=== PATIENT | male | born 1940 | race African-American/Black ===

== ENCOUNTER 2020-01-07 12:27 | Inpatient (IN) | payer MEDICARE, BC ==
[~2020-01-07] VITALS: Ht 177.8 cm; Wt 97.1 kg
[2020-01-07 13:41] LABS: BASOPHILS % 0.9 % (0.0-2.0); EOSINOPHILS % 1.7 % (0.0-5.0); HEMATOCRIT. 38.2 % (42.0-52.0); HEMOGLOBIN. 12.7 g/dL (14.0-18.0); LYMPHOCYTES % 23.2 % (20.0-50.0); MEAN CORPUSCULAR VOLUME 81.2 fL (80.0-94.0); MONOCYTES % 7.7 % (2.0-8.0); NEUTROPHILS % 66.5 % (40.0-76.0); PLATELET 173 x1000/uL (130-400); RED CELL DISTRIBUTION WIDTH 16.4 % (11.6-14.6)
[2020-01-07 13:49] LABS: CHLORIDE 110 mEq/L (98-107); INR 1.1; PROTHROMBIN TIME 11.8 sec (9.6-11.0)
[2020-01-07] MEDS ORDERED: SODIUM CHLORIDE 0.9% 1,000 ML IV ONE (14:18)
[2020-01-07] MEDS ORDERED: VANCOMYCIN 1 G PREMIX 200 ML IV ONE (14:30)
[2020-01-07] MEDS ORDERED: PIPERACILLIN/TAZ 3.375G PREMIX 50 ML IV ONE (14:30)
[2020-01-07] MEDS ORDERED: POTASSIUM CHLORIDE 20MEQ TABLET SR PO ONE (14:30)
[2020-01-07] MEDS ORDERED: KCL 20MEQ/100ML PREMIX 100 ML IV ONE (14:30)
[2020-01-07 17:02] LABS: CLARITY URINE CLOUDY (CLEAR); COLOR URINE YELLOW (YELLOW); KETONES URINE NEGATIVE (NEGATIVE); LEUKOCYTE ESTERASE URINE 3+ (NEGATIVE); NITRITE URINE POSITIVE (NEGATIVE); OCCULT BLOOD URINE 2+ (NEGATIVE); PROTEIN URINE 1+ (NEGATIVE); SPECIFIC GRAVITY URINE 1.012 (1.005-1.030)
[2020-01-07] MEDS ORDERED: DIPHENHYDRAMINE 50MG/ML VIAL IV PRN (19:45)
[2020-01-07] MEDS ORDERED: POTASSIUM CHLORIDE 20MEQ/PACKET PO NR (19:45)
[2020-01-07] MEDS ORDERED: ACETAMINOPHEN 325MG TABLET PO PRN (19:45)
[2020-01-07] MEDS ORDERED: ONDANSETRON HCL 4MG/2ML INJ IV PRN (19:45)
[2020-01-07] MEDS ORDERED: ENOXAPARIN 40MG/0.4ML SYR SUBCUT SCH (19:45)
[2020-01-07] MEDS: ENOXAPARIN 30MG/0.3ML SYR SUBCUT SCH ×2 (22:11→22:55)
[2020-01-07] MEDS: CEFTRIAXONE 1 G PREMIX 50 ML IV SCH ×2 (22:11→22:18)
[2020-01-07] MEDS: ACETAMINOPHEN 325MG TABLET PO PRN (22:12)
[2020-01-08] VITALS: BP 164/81
[2020-01-08] MEDS: SODIUM CHL 0.45% + KCL 20MEQ/L 1,000 ML IV SCH ×3 (00:27→11:03)
[2020-01-08] MEDS: CLONIDINE 0.1MG TABLET PO PRN (01:33)
[2020-01-08 04:00] VITALS: BP 121/66
[2020-01-08 07:48] LABS: BASOPHILS % 0.8 % (0.0-2.0); EOSINOPHILS % 1.3 % (0.0-5.0); HEMATOCRIT. 38.5 % (42.0-52.0); HEMOGLOBIN. 12.6 g/dL (14.0-18.0); MEAN CORPUSCULAR VOLUME 82.4 fL (80.0-94.0); MEAN PLATELET VOLUME 10.3 fl (7.4-10.4); MONOCYTES % 7.2 % (2.0-8.0); NEUTROPHILS % 67.7 % (40.0-76.0); PLATELET 165 x1000/uL (130-400); RED BLOOD CELL COUNT 4.67 mill/uL (4.7-6.1); RED CELL DISTRIBUTION WIDTH 16.1 % (11.6-14.6)
[2020-01-08 08:00] VITALS: BP 166/83
[2020-01-08 08:07] LABS: CHLORIDE 112 mEq/L (98-107)
[2020-01-08 08:22] LABS: PHOSPHORUS 2.3 mg/dL (2.5-4.9)
[2020-01-08] MEDS: AMLODIPINE 5MG TABLET PO SCH (09:31)
[2020-01-08 12:00] VITALS: BP 143/84
[2020-01-08] MEDS ORDERED: DEXT 5% WATER + KCL 40MEQ/L 1,000 ML IV SCH (13:30)
[2020-01-08] MEDS ORDERED: POTASSIUM PHOS,M-BASIC-D-BASIC 15 MMOL in DEXT 5% WATER 245 ML IV NR (14:00)
[2020-01-08] MEDS: POTASSIUM CHLORIDE INJ 40 MEQ in DEXTROSE 5% WATER 1,000 ML IV SCH (15:49)
[2020-01-08 16:00] VITALS: BP 113/63
[2020-01-08 20:49] VITALS: BP 136/75
[2020-01-08] MEDS: FAMOTIDINE 20MG TABLET PO SCH (21:39)
[2020-01-08] MEDS: ENOXAPARIN 30MG/0.3ML SYR SUBCUT SCH (21:39)
[2020-01-09] VITALS (7 sets, daily range): BP systolic 98–140; BP diastolic 56–83
[2020-01-09] MEDS: POTASSIUM CHLORIDE INJ 40 MEQ in DEXTROSE 5% WATER 1,000 ML IV SCH ×3 (01:06→17:43)
[2020-01-09 07:59] LABS: CHLORIDE 109 mEq/L (98-107)
[2020-01-09 08:06] LABS: PHOSPHORUS 2.7 mg/dL (2.5-4.9)
[2020-01-09] MEDS: AMLODIPINE 5MG TABLET PO SCH (08:22)
[2020-01-09] MEDS: ENOXAPARIN 30MG/0.3ML SYR SUBCUT SCH ×2 (08:22→20:26)
[2020-01-09] MEDS ORDERED: POTASSIUM CHLORIDE 20MEQ TABLET SR PO NR (11:30)
[2020-01-09] MEDS: CEFTRIAXONE 1,000 MG in DEXTROSE 5% WATER 50 ML IV SCH (14:14)
[2020-01-09] MEDS: FAMOTIDINE 20MG TABLET PO SCH (20:26)
[2020-01-09 20:51] LABS: CREATINE KINASE 289 IU/L (39-308)
[2020-01-09 21:09] LABS: FOLIC ACID (FOLATE) SERUM 4.9 ng/mL (>5.38)
[2020-01-10 00:50] LABS: T4 FREE 1.56 ng/dL (0.76-1.46)
[2020-01-10 04:12] VITALS: BP 116/65
[2020-01-10] MEDS: POTASSIUM CHLORIDE INJ 40 MEQ in DEXTROSE 5% WATER 1,000 ML IV SCH ×2 (05:48→17:53)
[2020-01-10 07:15] LABS: HEMATOCRIT. 37.5 % (42.0-52.0); HEMOGLOBIN. 12.7 g/dL (14.0-18.0); MEAN CORPUSCULAR HEMOGLOBIN 27.9 pg (28.0-32.0); MEAN CORPUSCULAR VOLUME 82.6 fL (80.0-94.0); MEAN PLATELET VOLUME 10.2 fl (7.4-10.4); PLATELET 141 x1000/uL (130-400); RED BLOOD CELL COUNT 4.54 mill/uL (4.7-6.1); RED CELL DISTRIBUTION WIDTH 16.7 % (11.6-14.6)
[2020-01-10 08:00] VITALS: BP 133/76
[2020-01-10 08:14] LABS: CHLORIDE 110 mEq/L (98-107)
[2020-01-10 08:20] LABS: PHOSPHORUS 2.5 mg/dL (2.5-4.9)
[2020-01-10] MEDS: AMLODIPINE 5MG TABLET PO SCH (08:30)
[2020-01-10] MEDS: ENOXAPARIN 30MG/0.3ML SYR SUBCUT SCH ×2 (08:31→21:16)
[2020-01-10 12:00] VITALS: BP_SYST 127; BP_SYST 133; BP_DIAS 72; BP_DIAS 75; BP_DIAS 76
[2020-01-10 13:16] LABS: PLATELET ESTIMATE NORMAL
[2020-01-10] MEDS: CEFTRIAXONE 1,000 MG in DEXTROSE 5% WATER 50 ML IV SCH (14:13)
[2020-01-10] MEDS: FOLIC ACID 1MG TABLET PO SCH (15:26)
[2020-01-10] MEDS: LACTULOSE 20G/30ML UDC PO SCH ×2 (15:26→21:16)
[2020-01-10 16:00] VITALS: BP 133/72
[2020-01-10 20:00] VITALS: BP 114/60
[2020-01-10] MEDS: FAMOTIDINE 20MG TABLET PO SCH (21:16)
[2020-01-11] VITALS: BP 153/88
[2020-01-11] MEDS: POTASSIUM CHLORIDE INJ 40 MEQ in DEXTROSE 5% WATER 1,000 ML IV SCH ×2 (02:10→16:03)
[2020-01-11 04:00] VITALS: BP 172/80
[2020-01-11] MEDS: CLONIDINE 0.1MG TABLET PO PRN (04:32)
[2020-01-11] MEDS: LACTULOSE 20G/30ML UDC PO SCH ×3 (06:16→22:03)
[2020-01-11 07:58] VITALS: BP 143/56
[2020-01-11] MEDS: FOLIC ACID 1MG TABLET PO SCH (08:56)
[2020-01-11] MEDS: AMLODIPINE 5MG TABLET PO SCH (08:56)
[2020-01-11] MEDS: ENOXAPARIN 30MG/0.3ML SYR SUBCUT SCH ×2 (08:57→21:56)
[2020-01-11 12:08] VITALS: BP 107/50
[2020-01-11] MEDS: CEFTRIAXONE 1,000 MG in DEXTROSE 5% WATER 50 ML IV SCH (15:28)
[2020-01-11 16:00] VITALS: BP 116/56
[2020-01-11] MEDS: LIDOCAINE 5% PATCH TOP SCH (16:03)
[2020-01-11 20:00] VITALS: BP 130/72
[2020-01-11] MEDS: FAMOTIDINE 20MG TABLET PO SCH (21:56)
[2020-01-12] VITALS (7 sets, daily range): BP systolic 106–154; BP diastolic 54–75
[2020-01-12] MEDS: POTASSIUM CHLORIDE INJ 40 MEQ in DEXTROSE 5% WATER 1,000 ML IV SCH ×2 (01:46→09:48)
[2020-01-12] MEDS: LACTULOSE 20G/30ML UDC PO SCH (06:30)
[2020-01-12] MEDS: FOLIC ACID 1MG TABLET PO SCH (08:35)
[2020-01-12] MEDS: LIDOCAINE 5% PATCH TOP SCH (08:35)
[2020-01-12] MEDS: ENOXAPARIN 30MG/0.3ML SYR SUBCUT SCH ×2 (08:36→21:54)
[2020-01-12] MEDS: AMLODIPINE 5MG TABLET PO SCH (08:36)
[2020-01-12] MEDS ORDERED: POTASSIUM CHLORIDE 20MEQ/PACKET PO NR (13:15)
[2020-01-12] MEDS ORDERED: FUROSEMIDE 40MG/4ML VIAL IVP NR (13:15)
[2020-01-12] MEDS: FAMOTIDINE 20MG TABLET PO SCH (21:53)
[2020-01-13] VITALS: BP 109/51
[2020-01-13 08:00] VITALS: BP 116/65
[2020-01-13] MEDS: LIDOCAINE 5% PATCH TOP SCH (09:00)
[2020-01-13] MEDS: AMLODIPINE 5MG TABLET PO SCH (09:28)
[2020-01-13] MEDS: ENOXAPARIN 30MG/0.3ML SYR SUBCUT SCH ×2 (09:28→21:50)
[2020-01-13] MEDS: FOLIC ACID 1MG TABLET PO SCH (09:28)
[2020-01-13 12:00] VITALS: BP 114/62
[2020-01-13 16:00] VITALS: BP 116/51
[2020-01-13 20:00] VITALS: BP 127/80
[2020-01-13] MEDS: ACETAMINOPHEN 325MG TABLET PO PRN (21:49)
[2020-01-13] MEDS: FAMOTIDINE 20MG TABLET PO SCH (21:49)
[2020-01-14] VITALS: BP 117/69
[2020-01-14 04:00] VITALS: BP 129/71
[2020-01-14 08:00] VITALS: BP 142/67
[2020-01-14] MEDS: FOLIC ACID 1MG TABLET PO SCH (08:36)
[2020-01-14] MEDS: AMLODIPINE 5MG TABLET PO SCH (08:36)
[2020-01-14] MEDS: ENOXAPARIN 30MG/0.3ML SYR SUBCUT SCH ×2 (08:36→21:20)
[2020-01-14] MEDS: LIDOCAINE 5% PATCH TOP SCH (08:38)
[2020-01-14 12:00] VITALS: BP 137/66
[2020-01-14 16:00] VITALS: BP 106/46
[2020-01-14 20:00] VITALS: BP 115/82
[2020-01-14] MEDS: FAMOTIDINE 20MG TABLET PO SCH (21:19)
[2020-01-15] VITALS: BP 118/75
[2020-01-15 04:00] VITALS: BP 138/85
[2020-01-15] MEDS: ENOXAPARIN 30MG/0.3ML SYR SUBCUT SCH ×2 (09:26→20:57)
[2020-01-15] MEDS: FOLIC ACID 1MG TABLET PO SCH (09:26)
[2020-01-15] MEDS: AMLODIPINE 5MG TABLET PO SCH (09:26)
[2020-01-15] MEDS: LIDOCAINE 5% PATCH TOP SCH (09:59)
[2020-01-15 12:00] VITALS: BP 118/61
[2020-01-15 16:00] VITALS: BP 123/79
[2020-01-15] MEDS: FAMOTIDINE 20MG TABLET PO SCH (20:56)
[2020-01-15] MEDS: ACETAMINOPHEN 325MG TABLET PO PRN (20:59)
[2020-01-16] VITALS: BP 123/60
[2020-01-16 04:00] VITALS: BP 122/80
[2020-01-16 08:00] VITALS: BP 127/62
[2020-01-16] MEDS: FOLIC ACID 1MG TABLET PO SCH (09:07)
[2020-01-16] MEDS: AMLODIPINE 5MG TABLET PO SCH (09:07)
[2020-01-16] MEDS: LIDOCAINE 5% PATCH TOP SCH (09:08)
[2020-01-16] MEDS: ENOXAPARIN 30MG/0.3ML SYR SUBCUT SCH ×2 (09:08→21:59)
[2020-01-16 11:59] VITALS: BP 130/64
[2020-01-16] MEDS: ACETAMINOPHEN 325MG TABLET PO PRN (15:31)
[2020-01-16 15:59] VITALS: BP 124/60
[2020-01-16 17:10] LABS: 25-HYDROXY VITAMIN D3 16 ng/mL (.)
[2020-01-16 20:00] VITALS: BP 143/59
[2020-01-16] MEDS: FAMOTIDINE 20MG TABLET PO SCH (22:00)
[2020-01-17] VITALS: BP 134/74
[2020-01-17 04:00] VITALS: BP 126/78
[2020-01-17 08:00] VITALS: BP 163/67
[2020-01-17] MEDS: FOLIC ACID 1MG TABLET PO SCH (08:54)
[2020-01-17] MEDS: ENOXAPARIN 30MG/0.3ML SYR SUBCUT SCH ×2 (08:54→20:49)
[2020-01-17] MEDS: AMLODIPINE 5MG TABLET PO SCH (08:54)
[2020-01-17] MEDS: LIDOCAINE 5% PATCH TOP SCH (08:56)
[2020-01-17 12:00] VITALS: BP 127/82
[2020-01-17] MEDS: ERGOCALCIFEROL 50000UNITS CAPSULE PO SCH (14:33)
[2020-01-17 16:00] VITALS: BP_SYST 151; BP_SYST 159; BP_DIAS 69; BP_DIAS 71
[2020-01-17 20:00] VITALS: BP 133/64
[2020-01-17] MEDS: FAMOTIDINE 20MG TABLET PO SCH (20:49)
[2020-01-18] VITALS: BP 130/62
[2020-01-18 04:00] VITALS: BP 144/73
[2020-01-18 06:49] LABS: BASOPHILS % 0.7 % (0.0-2.0); EOSINOPHILS % 2.7 % (0.0-5.0); LYMPHOCYTES % 19.5 % (20.0-50.0); MEAN CORPUSCULAR HEMOGLOBIN 27.5 pg (28.0-32.0); MEAN CORPUSCULAR VOLUME 82.2 fL (80.0-94.0); MEAN PLATELET VOLUME 9.4 fl (7.4-10.4); MONOCYTES % 11.8 % (2.0-8.0); NEUTROPHILS % 65.3 % (40.0-76.0); PLATELET 163 x1000/uL (130-400); RED BLOOD CELL COUNT 3.64 mill/uL (4.7-6.1); RED CELL DISTRIBUTION WIDTH 16.5 % (11.6-14.6)
[2020-01-18 07:08] LABS: CHLORIDE 111 mEq/L (98-107)
[2020-01-18 08:00] VITALS: BP 153/54
[2020-01-18] MEDS: AMLODIPINE 5MG TABLET PO SCH (08:55)
[2020-01-18] MEDS: ENOXAPARIN 30MG/0.3ML SYR SUBCUT SCH ×2 (08:55→21:50)
[2020-01-18] MEDS: FOLIC ACID 1MG TABLET PO SCH (08:55)
[2020-01-18] MEDS: LIDOCAINE 5% PATCH TOP SCH (09:22)
[2020-01-18 12:00] VITALS: BP 147/63
[2020-01-18 16:00] VITALS: BP 145/69
[2020-01-18 20:00] VITALS: BP 137/60
[2020-01-18] MEDS: FAMOTIDINE 20MG TABLET PO SCH (21:50)
[2020-01-19] VITALS: BP 141/56
[2020-01-19 04:00] VITALS: BP 152/72
[2020-01-19 08:00] VITALS: BP 97/46
[2020-01-19] MEDS: ENOXAPARIN 30MG/0.3ML SYR SUBCUT SCH ×2 (08:33→21:10)
[2020-01-19] MEDS: LIDOCAINE 5% PATCH TOP SCH (08:33)
[2020-01-19] MEDS: FOLIC ACID 1MG TABLET PO SCH (08:34)
[2020-01-19] MEDS: AMLODIPINE 5MG TABLET PO SCH (08:34)
[2020-01-19] MEDS ORDERED: POTASSIUM CHLORIDE 20MEQ TABLET SR PO SCH (10:30)
[2020-01-19 12:00] VITALS: BP 115/51
[2020-01-19 16:00] VITALS: BP 137/53
[2020-01-19 20:00] VITALS: BP 144/68
[2020-01-19] MEDS: FAMOTIDINE 20MG TABLET PO SCH (21:08)
[2020-01-20] VITALS: BP 150/67
[2020-01-20 04:00] VITALS: BP 124/66
[2020-01-20 08:00] VITALS: BP 119/60
[2020-01-20] MEDS: AMLODIPINE 5MG TABLET PO SCH (09:15)
[2020-01-20] MEDS: FOLIC ACID 1MG TABLET PO SCH (09:15)
[2020-01-20] MEDS: ENOXAPARIN 30MG/0.3ML SYR SUBCUT SCH ×2 (09:16→20:17)
[2020-01-20] MEDS: LIDOCAINE 5% PATCH TOP SCH (09:17)
[2020-01-20 09:24] LABS: CHLORIDE 111 mEq/L (98-107)
[2020-01-20] MEDS: POTASSIUM CHLORIDE 20MEQ TABLET SR PO SCH ×3 (10:50→15:18)
[2020-01-20 12:00] VITALS: BP 115/46
[2020-01-20 16:00] VITALS: BP 157/77
[2020-01-20 20:00] VITALS: BP 145/76
[2020-01-20] MEDS: FAMOTIDINE 20MG TABLET PO SCH (20:17)
[2020-01-21] VITALS: BP 145/73
[2020-01-21 04:00] VITALS: BP 133/65
[2020-01-21 06:29] LABS: CHLORIDE 113 mEq/L (98-107)
[2020-01-21 08:00] VITALS: BP 124/67
[2020-01-21] MEDS: AMLODIPINE 5MG TABLET PO SCH (09:03)
[2020-01-21] MEDS: FOLIC ACID 1MG TABLET PO SCH (09:03)
[2020-01-21] MEDS: LIDOCAINE 5% PATCH TOP SCH (09:05)
[2020-01-21] MEDS: ENOXAPARIN 30MG/0.3ML SYR SUBCUT SCH ×2 (09:05→20:21)
[2020-01-21 12:00] VITALS: BP 152/73
[2020-01-21 16:00] VITALS: BP 138/80
[2020-01-21 20:00] VITALS: BP 151/80
[2020-01-21] MEDS: DICLOFENAC SODIUM 75MG DR (EC) TABLET PO SCH (20:21)
[2020-01-21] MEDS: FAMOTIDINE 20MG TABLET PO SCH (20:22)
[2020-01-22] VITALS: BP 165/78
[2020-01-22] MEDS: CLONIDINE 0.1MG TABLET PO PRN (00:36)
[2020-01-22] MEDS: ACETAMINOPHEN 325MG TABLET PO PRN ×2 (00:40→22:04)
[2020-01-22 04:00] VITALS: BP 102/53
[2020-01-22 08:00] VITALS: BP 121/63
[2020-01-22] MEDS: ENOXAPARIN 30MG/0.3ML SYR SUBCUT SCH ×2 (09:58→22:05)
[2020-01-22] MEDS: DICLOFENAC SODIUM 75MG DR (EC) TABLET PO SCH ×2 (09:59→22:04)
[2020-01-22] MEDS: LIDOCAINE 5% PATCH TOP SCH (09:59)
[2020-01-22] MEDS: AMLODIPINE 5MG TABLET PO SCH (10:00)
[2020-01-22] MEDS: FOLIC ACID 1MG TABLET PO SCH (10:00)
[2020-01-22 12:00] VITALS: BP 120/86
[2020-01-22 16:00] VITALS: BP 123/69
[2020-01-22 20:00] VITALS: BP 137/73
[2020-01-22] MEDS: FAMOTIDINE 20MG TABLET PO SCH (22:04)
[2020-01-23] VITALS: BP 130/60
[2020-01-23 04:00] VITALS: BP 150/72
[2020-01-23 08:00] VITALS: BP 132/67
[2020-01-23] MEDS: DICLOFENAC SODIUM 75MG DR (EC) TABLET PO SCH ×2 (08:49→20:45)
[2020-01-23] MEDS: AMLODIPINE 5MG TABLET PO SCH (08:49)
[2020-01-23] MEDS: FOLIC ACID 1MG TABLET PO SCH (08:49)
[2020-01-23] MEDS: LIDOCAINE 5% PATCH TOP SCH (08:50)
[2020-01-23] MEDS: ENOXAPARIN 30MG/0.3ML SYR SUBCUT SCH ×2 (08:50→20:45)
[2020-01-23 12:00] VITALS: BP 140/100
[2020-01-23] MEDS: ACETAMINOPHEN 325MG TABLET PO PRN (15:24)
[2020-01-23 16:00] VITALS: BP 152/73
[2020-01-23 20:00] VITALS: BP 114/61
[2020-01-23] MEDS: FAMOTIDINE 20MG TABLET PO SCH (20:45)
[2020-01-24] VITALS: BP_SYST 130; BP_SYST 139; BP_DIAS 61; BP_DIAS 66
[2020-01-24 04:00] VITALS: BP 140/63
[2020-01-24 08:00] VITALS: BP 149/68
[2020-01-24] MEDS: FOLIC ACID 1MG TABLET PO SCH (08:43)
[2020-01-24] MEDS: AMLODIPINE 5MG TABLET PO SCH (08:43)
[2020-01-24] MEDS: DICLOFENAC SODIUM 75MG DR (EC) TABLET PO SCH ×2 (08:43→21:18)
[2020-01-24] MEDS: ERGOCALCIFEROL 50000UNITS CAPSULE PO SCH (08:43)
[2020-01-24] MEDS: ENOXAPARIN 30MG/0.3ML SYR SUBCUT SCH ×2 (08:44→21:19)
[2020-01-24] MEDS: LIDOCAINE 5% PATCH TOP SCH (08:44)
[2020-01-24 12:00] VITALS: BP 140/62
[2020-01-24 16:00] VITALS: BP 130/64
[2020-01-24 20:00] VITALS: BP 146/67
[2020-01-24] MEDS: FAMOTIDINE 20MG TABLET PO SCH (21:18)
[2020-01-24] MEDS: ACETAMINOPHEN 325MG TABLET PO PRN (21:28)
[2020-01-25] VITALS (7 sets, daily range): BP systolic 113–226; BP diastolic 59–88
[2020-01-25 07:24] LABS: BASOPHILS % 0.6 % (0.0-2.0); EOSINOPHILS % 3.3 % (0.0-5.0); HEMATOCRIT. 28.4 % (42.0-52.0); HEMOGLOBIN. 9.3 g/dL (14.0-18.0); LYMPHOCYTES % 17.6 % (20.0-50.0); MONOCYTES % 10.3 % (2.0-8.0); NEUTROPHILS % 68.2 % (40.0-76.0); PLATELET 178 x1000/uL (130-400); RED BLOOD CELL COUNT 3.46 mill/uL (4.7-6.1); RED CELL DISTRIBUTION WIDTH 17.3 % (11.6-14.6)
[2020-01-25 07:31] LABS: CHLORIDE 112 mEq/L (98-107)
[2020-01-25 07:43] LABS: PHOSPHORUS 3.4 mg/dL (2.5-4.9)
[2020-01-25] MEDS: FOLIC ACID 1MG TABLET PO SCH (08:49)
[2020-01-25] MEDS: DICLOFENAC SODIUM 75MG DR (EC) TABLET PO SCH ×2 (08:49→21:20)
[2020-01-25] MEDS: AMLODIPINE 5MG TABLET PO SCH (08:49)
[2020-01-25] MEDS: ENOXAPARIN 30MG/0.3ML SYR SUBCUT SCH (08:50)
[2020-01-25] MEDS: LIDOCAINE 5% PATCH TOP SCH (08:50)
[2020-01-25] MEDS: ACETAMINOPHEN 325MG TABLET PO PRN (08:57)
[2020-01-25] MEDS ORDERED: POTASSIUM CHLORIDE 20MEQ TABLET SR PO NR (10:15)
[2020-01-25] MEDS: FAMOTIDINE 20MG TABLET PO SCH (21:20)
[2020-01-26] VITALS: BP 142/74
[2020-01-26 04:00] VITALS: BP 145/80
[2020-01-26 08:00] VITALS: BP 139/55
[2020-01-26] MEDS ORDERED: POTASSIUM CHLORIDE 20MEQ TABLET SR PO SCH (09:00)
[2020-01-26] MEDS: FOLIC ACID 1MG TABLET PO SCH (09:58)
[2020-01-26] MEDS: AMLODIPINE 5MG TABLET PO SCH (09:58)
[2020-01-26] MEDS: DICLOFENAC SODIUM 75MG DR (EC) TABLET PO SCH ×2 (09:58→21:30)
[2020-01-26] MEDS: LIDOCAINE 5% PATCH TOP SCH (10:02)
[2020-01-26 10:13] LABS: CHLORIDE 112 mEq/L (98-107)
[2020-01-26 12:00] VITALS: BP 137/55
[2020-01-26] MEDS ORDERED: POTASSIUM CHLORIDE 20MEQ TABLET SR PO NR (12:30)
[2020-01-26 16:00] VITALS: BP 141/55
[2020-01-26 20:00] VITALS: BP 142/70
[2020-01-26] MEDS: FAMOTIDINE 20MG TABLET PO SCH (21:30)
[2020-01-27] VITALS: BP 147/63
[2020-01-27 04:00] VITALS: BP 157/76
[2020-01-27 08:00] VITALS: BP 138/63
[2020-01-27] MEDS: POTASSIUM CHLORIDE 20MEQ TABLET SR PO SCH (09:41)
[2020-01-27] MEDS: AMLODIPINE 5MG TABLET PO SCH (09:41)
[2020-01-27] MEDS: DICLOFENAC SODIUM 75MG DR (EC) TABLET PO SCH ×2 (09:42→20:42)
[2020-01-27] MEDS: FOLIC ACID 1MG TABLET PO SCH (09:42)
[2020-01-27] MEDS: LIDOCAINE 5% PATCH TOP SCH (09:42)
[2020-01-27 12:00] VITALS: BP 156/71
[2020-01-27 16:00] VITALS: BP 139/64
[2020-01-27 20:00] VITALS: BP 153/74
[2020-01-27] MEDS: FAMOTIDINE 20MG TABLET PO SCH (20:42)
[2020-01-28 00:04] VITALS: BP 157/74
[2020-01-28] MEDS: ACETAMINOPHEN 325MG TABLET PO PRN (03:53)
[2020-01-28 04:00] VITALS: BP 155/75
[2020-01-28 08:00] VITALS: BP 154/76
[2020-01-28] MEDS: FOLIC ACID 1MG TABLET PO SCH (08:40)
[2020-01-28] MEDS: POTASSIUM CHLORIDE 20MEQ TABLET SR PO SCH (08:40)
[2020-01-28] MEDS: AMLODIPINE 5MG TABLET PO SCH (08:41)
[2020-01-28] MEDS: DICLOFENAC SODIUM 75MG DR (EC) TABLET PO SCH (08:41)
[2020-01-28] MEDS: LIDOCAINE 5% PATCH TOP SCH (08:43)
[2020-01-28 09:32] LABS: CHLORIDE 113 mEq/L (98-107)
[2020-01-28 12:00] VITALS: BP 140/83
[2020-01-28 16:00] VITALS: BP 143/71
== END 2020-01-28 19:00 | DRG 425 ==
LOC: ER 12:27 → 6WST 16:14 → EDBEDREQ 16:25 → ENRESERV 22:07 → 6EST 01-13 16:40 → 6WST 01-19 14:10 → 6EST 01-19 14:12
PROVIDERS: ADMIT Internal Medicine; ATTEND Internal Medicine
DX: E87.6 Hypokalemia (principal); N39.0 Urinary tract infection, site not specified; G92 Toxic encephalopathy; E87.0 Hyperosmolality and hypernatremia; J18.9 Pneumonia, unspecified organism; M48.02 Spinal stenosis, cervical region; M48.061 Spinal stenosis, lumbar region without neurogenic claudication; I11.0 Hypertensive heart disease with heart failure; G82.50 Quadriplegia, unspecified; E46 Unspecified protein-calorie malnutrition; D64.9 Anemia, unspecified; S43.014A Anterior dislocation of right humerus, initial encounter; E55.9 Vitamin D deficiency, unspecified; R20.0 Anesthesia of skin; W06.XXXA Fall from bed, initial encounter; Z20.828 Contact with and (suspected) exposure to other viral communicable diseases; Z74.01 Bed confinement status; Z75.1 Person awaiting admission to adequate facility elsewhere; Z95.0 Presence of cardiac pacemaker; Y93.89 Activity, other specified; Y92.89 Other specified places as the place of occurrence of the external cause; Y99.8 Other external cause status; Z79.899 Other long term (current) drug therapy; Z68.30 Body mass index [BMI] 30.0-30.9, adult; I50.32 Chronic diastolic (congestive) heart failure; R65.10 Systemic inflammatory response syndrome (SIRS) of non-infectious origin without acute organ dysfunction
CPT/HCPCS: 36415; 71045; 72128; 72131; 73030; 73200; 80048; 80053; 81003; 82088; 82140; 82306; 82533; 82550; 82607; 82746; 82962; 83036; 83605; 83735; 84100; 84145; 84439; 84443; 84481; 84484; 85025; 87635; 92610; 93005; 93970; 96365; 97110; 97162; 97164; 97166; 97530; 99291; J0696; J1650; J1940; J2543; J3370; J3480; J3490; J7030; J7060; J7070

== ENCOUNTER 2020-07-29 18:19 | Inpatient (IN) | payer MEDICARE, BC, MEDICAID ==
[~2020-07-29] VITALS: Ht 167.6 cm; Wt 122.5 kg
[2020-07-29] MEDS ORDERED: VANCOMYCIN 1 G PREMIX 200 ML IV ONE (20:00)
[2020-07-29] MEDS ORDERED: PIPERACILLIN/TAZ 3.375G PREMIX 50 ML IV ONE (20:00)
[2020-07-29] MEDS ORDERED: SODIUM CHLORIDE 0.9% 500 ML IV ONE (20:00)
[2020-07-29 22:05] LABS: BASOPHILS % 0.5 % (0.0-2.0); EOSINOPHILS % 7.1 % (0.0-5.0); HEMATOCRIT. 26.7 % (42.0-52.0); HEMOGLOBIN. 8.8 g/dL (14.0-18.0); MEAN CORPUSCULAR HEMOGLOBIN 27.3 pg (28.0-32.0); MEAN CORPUSCULAR VOLUME 82.6 fL (80.0-94.0); MEAN PLATELET VOLUME 8.4 fl (7.4-10.4); MONOCYTES % 12.2 % (2.0-8.0); NEUTROPHILS % 65.2 % (40.0-76.0); PLATELET 216 x1000/uL (130-400); RED BLOOD CELL COUNT 3.23 mill/uL (4.7-6.1); RED CELL DISTRIBUTION WIDTH 20.1 % (11.6-14.6)
[2020-07-29 22:10] LABS: CHLORIDE 113 mEq/L (98-107)
[2020-07-29 22:12] LABS: INR 1.1; PARTIAL THROMBOPLASTIN TIME 29.3 sec (23.4-31.0); PROTHROMBIN TIME 11.4 sec (9.6-11.0)
[2020-07-29] MEDS ORDERED: FUROSEMIDE 40MG/4ML VIAL IVP ONE (23:00)
[2020-07-30] MEDS ORDERED: CLONIDINE 0.1MG TABLET PO PRN (04:30)
[2020-07-30] MEDS ORDERED: AMLODIPINE 2.5MG TABLET PO SCH (05:00)
[2020-07-30 05:45] VITALS: BP 152/55
[2020-07-30 06:00] VITALS: BP 152/55
[2020-07-30 08:00] VITALS: BP 200/82
[2020-07-30] MEDS: AMLODIPINE 10MG TABLET PO SCH (09:52)
[2020-07-30] MEDS: PIPERACILLIN/TAZOBACTAM 3.375 G in DEXT 5% WATER 100 ML IV SCH ×3 (11:23→21:23)
[2020-07-30] MEDS ORDERED: VANCOMYCIN 1500MG in DEXTROSE 5% WATER 250ML IV SCH (12:00)
[2020-07-30 12:09] VITALS: BP 148/30
[2020-07-30] MEDS ORDERED: PIPERACILLIN/TAZOBACTAM 3.375 G/VIAL IV SCH (14:00)
[2020-07-30 15:54] VITALS: BP 119/35
[2020-07-30 20:00] VITALS: BP 125/41
[2020-07-31] VITALS: BP 112/48
[2020-07-31 04:00] VITALS: BP 136/60
[2020-07-31] MEDS: PIPERACILLIN/TAZOBACTAM 3.375 G in DEXT 5% WATER 100 ML IV SCH ×3 (04:45→16:36)
[2020-07-31] MEDS: VANCOMYCIN 1250MG in DEXTROSE 5% WATER 250ML IV SCH ×2 (05:31→23:31)
[2020-07-31 08:12] VITALS: BP 179/47
[2020-07-31] MEDS: AMLODIPINE 10MG TABLET PO SCH (09:24)
[2020-07-31] MEDS: POTASSIUM CHLORIDE 20MEQ TABLET SR PO SCH (10:59)
[2020-07-31] MEDS: FUROSEMIDE 40MG/4ML VIAL IVP SCH (10:59)
[2020-07-31] MEDS: CLONIDINE 0.2MG TABLET PO PRN (12:10)
[2020-07-31 12:30] LABS: BASOPHILS % 0.9 % (0.0-2.0); EOSINOPHILS % 6.9 % (0.0-5.0); HEMATOCRIT. 26.9 % (42.0-52.0); HEMOGLOBIN. 8.8 g/dL (14.0-18.0); LYMPHOCYTES % 11.3 % (20.0-50.0); MEAN CORPUSCULAR HEMOGLOBIN 27.1 pg (28.0-32.0); MEAN CORPUSCULAR VOLUME 82.8 fL (80.0-94.0); MEAN PLATELET VOLUME 8.6 fl (7.4-10.4); MONOCYTES % 10.1 % (2.0-8.0); NEUTROPHILS % 70.8 % (40.0-76.0); PLATELET 199 x1000/uL (130-400); RED BLOOD CELL COUNT 3.25 mill/uL (4.7-6.1); RED CELL DISTRIBUTION WIDTH 20.1 % (11.6-14.6)
[2020-07-31 12:34] VITALS: BP 174/54
[2020-07-31 12:38] LABS: CHLORIDE 110 mEq/L (98-107)
[2020-07-31 16:41] VITALS: BP 155/32
[2020-07-31 20:00] VITALS: BP 133/49
[2020-08-01] VITALS (7 sets, daily range): BP systolic 117–174; BP diastolic 29–68
[2020-08-01] MEDS: HYDROCODONE/ACETAMINOPHEN 5/325MG TABLET PO PRN ×2 (02:06→10:54)
[2020-08-01 06:44] LABS: BASOPHILS % 0.5 % (0.0-2.0); EOSINOPHILS % 6.3 % (0.0-5.0); HEMATOCRIT. 25.1 % (42.0-52.0); HEMOGLOBIN. 8.2 g/dL (14.0-18.0); LYMPHOCYTES % 16.9 % (20.0-50.0); MEAN CORPUSCULAR HEMOGLOBIN 26.8 pg (28.0-32.0); MEAN PLATELET VOLUME 8.6 fl (7.4-10.4); MONOCYTES % 8.4 % (2.0-8.0); NEUTROPHILS % 67.9 % (40.0-76.0); PLATELET 185 x1000/uL (130-400); RED BLOOD CELL COUNT 3.07 mill/uL (4.7-6.1); RED CELL DISTRIBUTION WIDTH 20.1 % (11.6-14.6)
[2020-08-01 06:49] LABS: CHLORIDE 108 mEq/L (98-107)
[2020-08-01] MEDS: POTASSIUM CHLORIDE 20MEQ TABLET SR PO SCH (08:51)
[2020-08-01] MEDS: FUROSEMIDE 40MG/4ML VIAL IVP SCH (08:51)
[2020-08-01] MEDS: AMLODIPINE 10MG TABLET PO SCH (08:51)
[2020-08-01] MEDS: CLONIDINE 0.2MG TABLET PO PRN (22:29)
[2020-08-02] VITALS: BP 160/31
[2020-08-02 04:00] VITALS: BP 160/37
[2020-08-02] MEDS: HYDROCODONE/ACETAMINOPHEN 5/325MG TABLET PO PRN (07:10)
[2020-08-02 07:14] LABS: CHLORIDE 106 mEq/L (98-107)
[2020-08-02 08:00] VITALS: BP 176/62
[2020-08-02] MEDS: POTASSIUM CHLORIDE 20MEQ TABLET SR PO SCH (09:06)
[2020-08-02] MEDS: FUROSEMIDE 40MG/4ML VIAL IVP SCH ×2 (09:06→17:26)
[2020-08-02] MEDS: AMLODIPINE 10MG TABLET PO SCH (09:07)
[2020-08-02] MEDS: CLONIDINE 0.2MG TABLET PO PRN (09:09)
[2020-08-02 12:00] VITALS: BP 165/55
[2020-08-02 16:00] VITALS: BP 150/56
[2020-08-02 16:15] LABS: BASOPHILS % 0.7 % (0.0-2.0); EOSINOPHILS % 6.2 % (0.0-5.0); HEMATOCRIT. 23.8 % (42.0-52.0); HEMOGLOBIN. 7.8 g/dL (14.0-18.0); LYMPHOCYTES % 17.9 % (20.0-50.0); MEAN CORPUSCULAR VOLUME 82.9 fL (80.0-94.0); MEAN PLATELET VOLUME 8.6 fl (7.4-10.4); MONOCYTES % 11.9 % (2.0-8.0); NEUTROPHILS % 63.3 % (40.0-76.0); PLATELET 169 x1000/uL (130-400); RED BLOOD CELL COUNT 2.87 mill/uL (4.7-6.1); RED CELL DISTRIBUTION WIDTH 20.5 % (11.6-14.6)
[2020-08-02 16:32] LABS: CHLORIDE 107 mEq/L (98-107)
[2020-08-02 20:00] VITALS: BP 149/52
[2020-08-02] MEDS: ENOXAPARIN 40MG/0.4ML SYR SUBCUT SCH (22:21)
[2020-08-03] VITALS: BP 141/54
[2020-08-03 04:00] VITALS: BP 142/61
[2020-08-03] MEDS: HYDROCODONE/ACETAMINOPHEN 10/325MG TABLET PO PRN ×2 (06:35→20:54)
[2020-08-03 07:43] VITALS: BP 163/67
[2020-08-03] MEDS: ENOXAPARIN 40MG/0.4ML SYR SUBCUT SCH (09:00)
[2020-08-03] MEDS: AMLODIPINE 10MG TABLET PO SCH (09:11)
[2020-08-03] MEDS: POTASSIUM CHLORIDE 20MEQ TABLET SR PO SCH (09:11)
[2020-08-03] MEDS: FUROSEMIDE 40MG/4ML VIAL IVP SCH ×2 (09:12→17:32)
[2020-08-03 09:55] LABS: BG BASE EXCESS 3.2 mmol/L (-2.0-2.0); BG CARBOXYHEMOGLOBIN 0.3 % (0.5-1.5); BG DEOXYHEMOGLOBIN 3.7 % (0.0-5.0); BG FRACTION INSPIRED OXYGEN 21; BG METHEMOGLOBIN 0.3 % (0.0-1.5); BG OXYGEN SATURATION 96.3 % (92.0-98.5); BG OXYHEMOGLOBIN 95.7 % (94.0-97.0); BG PCO2 43.8 mmHg (35.0-45.0); BG PH 7.423 (7.350-7.450); BG PO2 85.9 mmHg (75.0-100.0); BG SAMPLE SITE RIGHT RADIAL; BG TOTAL HEMOGLOBIN 9.1 g/dL (12.0-18.0); BG VENT MODE ROOM AIR
[2020-08-03 11:51] VITALS: BP 166/89
[2020-08-03 13:23] LABS: EOSINOPHILS % 5.1 % (0.0-5.0); HEMATOCRIT. 25.7 % (42.0-52.0); HEMOGLOBIN. 8.3 g/dL (14.0-18.0); LYMPHOCYTES % 20.5 % (20.0-50.0); MEAN CORPUSCULAR HEMOGLOBIN 26.8 pg (28.0-32.0); MEAN CORPUSCULAR VOLUME 82.4 fL (80.0-94.0); MEAN PLATELET VOLUME 8.7 fl (7.4-10.4); MONOCYTES % 13.1 % (2.0-8.0); NEUTROPHILS % 60.3 % (40.0-76.0); PLATELET 191 x1000/uL (130-400); RED BLOOD CELL COUNT 3.12 mill/uL (4.7-6.1); RED CELL DISTRIBUTION WIDTH 20.2 % (11.6-14.6)
[2020-08-03 13:40] LABS: CHLORIDE 104 mEq/L (98-107)
[2020-08-03 13:44] LABS: TOTAL IRON BINDING CAPACITY 117 ug/dL (250-450)
[2020-08-03] MEDS: PANTOPRAZOLE SODIUM 40 MG/VIAL IV SCH (14:10)
[2020-08-03 16:13] VITALS: BP 151/72
[2020-08-03 20:00] VITALS: BP 140/71
[2020-08-03] MEDS: ENOXAPARIN 30MG/0.3ML SYR SUBCUT SCH (20:56)
[2020-08-03] MEDS: CEPHALEXIN 250MG CAPSULE PO SCH (22:25)
[2020-08-04] VITALS: BP 146/67
[2020-08-04 04:00] VITALS: BP 177/74
[2020-08-04] MEDS: CLONIDINE 0.2MG TABLET PO PRN (04:53)
[2020-08-04] MEDS: CEPHALEXIN 250MG CAPSULE PO SCH ×3 (05:38→21:16)
[2020-08-04 07:30] LABS: FOLIC ACID (FOLATE) SERUM 5.5 ng/mL (>5.38)
[2020-08-04 08:15] VITALS: BP 133/68
[2020-08-04] MEDS: POTASSIUM CHLORIDE 20MEQ TABLET SR PO SCH (08:41)
[2020-08-04] MEDS: AMLODIPINE 10MG TABLET PO SCH (08:41)
[2020-08-04] MEDS: ENOXAPARIN 30MG/0.3ML SYR SUBCUT SCH ×2 (08:41→21:16)
[2020-08-04] MEDS: FUROSEMIDE 40MG/4ML VIAL IVP SCH ×2 (08:42→17:20)
[2020-08-04] MEDS: PANTOPRAZOLE SODIUM 40 MG/VIAL IV SCH (08:42)
[2020-08-04 11:38] VITALS: BP 129/67
[2020-08-04] MEDS: HYDROCODONE/ACETAMINOPHEN 10/325MG TABLET PO PRN (14:20)
[2020-08-04 16:01] VITALS: BP 159/79
[2020-08-04 20:00] VITALS: BP 131/74
[2020-08-05] VITALS: BP 127/69
[2020-08-05 04:00] VITALS: BP 159/82
[2020-08-05] MEDS: HYDROCODONE/ACETAMINOPHEN 10/325MG TABLET PO PRN ×2 (04:31→20:49)
[2020-08-05] MEDS: CEPHALEXIN 250MG CAPSULE PO SCH ×3 (05:22→20:50)
[2020-08-05 08:00] VITALS: BP 177/83
[2020-08-05] MEDS: PANTOPRAZOLE SODIUM 40 MG/VIAL IV SCH (09:27)
[2020-08-05] MEDS: FUROSEMIDE 40MG/4ML VIAL IVP SCH ×2 (09:27→16:54)
[2020-08-05] MEDS: POTASSIUM CHLORIDE 20MEQ TABLET SR PO SCH (09:28)
[2020-08-05] MEDS: ENOXAPARIN 30MG/0.3ML SYR SUBCUT SCH ×2 (09:28→20:49)
[2020-08-05] MEDS: AMLODIPINE 10MG TABLET PO SCH (09:28)
[2020-08-05 11:59] VITALS: BP 160/80
[2020-08-05 16:21] VITALS: BP 155/77
[2020-08-05 20:00] VITALS: BP 157/75
[2020-08-06] VITALS: BP 163/74
[2020-08-06 04:00] VITALS: BP 183/90
[2020-08-06] MEDS: HYDROCODONE/ACETAMINOPHEN 10/325MG TABLET PO PRN (05:49)
[2020-08-06] MEDS: CLONIDINE 0.2MG TABLET PO PRN ×2 (05:49→16:28)
[2020-08-06] MEDS: CEPHALEXIN 250MG CAPSULE PO SCH ×3 (05:49→20:56)
[2020-08-06 08:00] VITALS: BP 137/72
[2020-08-06] MEDS: FUROSEMIDE 40MG/4ML VIAL IVP SCH ×2 (09:48→16:28)
[2020-08-06] MEDS: PANTOPRAZOLE SODIUM 40 MG/VIAL IV SCH (09:48)
[2020-08-06] MEDS: POTASSIUM CHLORIDE 20MEQ TABLET SR PO SCH (09:48)
[2020-08-06] MEDS: AMLODIPINE 10MG TABLET PO SCH (09:50)
[2020-08-06] MEDS: ENOXAPARIN 30MG/0.3ML SYR SUBCUT SCH ×2 (09:51→20:56)
[2020-08-06 12:00] VITALS: BP 136/76
[2020-08-06 16:00] VITALS: BP 205/102
[2020-08-06 20:00] VITALS: BP 134/42
[2020-08-06 20:01] LABS: BASOPHILS % 0.8 % (0.0-2.0); HEMATOCRIT. 24.8 % (42.0-52.0); HEMOGLOBIN. 8.2 g/dL (14.0-18.0); LYMPHOCYTES % 17.9 % (20.0-50.0); MEAN CORPUSCULAR HEMOGLOBIN 27.5 pg (28.0-32.0); MEAN PLATELET VOLUME 8.4 fl (7.4-10.4); MONOCYTES % 12.6 % (2.0-8.0); NEUTROPHILS % 63.7 % (40.0-76.0); PLATELET 178 x1000/uL (130-400); RED BLOOD CELL COUNT 2.99 mill/uL (4.7-6.1); RED CELL DISTRIBUTION WIDTH 19.9 % (11.6-14.6)
[2020-08-07] VITALS: BP_SYST 156; BP_SYST 162; BP_DIAS 50; BP_DIAS 56
[2020-08-07] MEDS: CLONIDINE 0.2MG TABLET PO PRN (00:08)
[2020-08-07 04:00] VITALS: BP 129/41
[2020-08-07] MEDS: CEPHALEXIN 250MG CAPSULE PO SCH ×2 (06:03→13:15)
[2020-08-07 08:00] VITALS: BP 149/38
[2020-08-07] MEDS: POTASSIUM CHLORIDE 20MEQ TABLET SR PO SCH (09:42)
[2020-08-07] MEDS: PANTOPRAZOLE SODIUM 40 MG/VIAL IV SCH (09:43)
[2020-08-07] MEDS: ENOXAPARIN 30MG/0.3ML SYR SUBCUT SCH (09:43)
[2020-08-07] MEDS: FUROSEMIDE 40MG/4ML VIAL IVP SCH (09:43)
[2020-08-07] MEDS: AMLODIPINE 10MG TABLET PO SCH (09:43)
[2020-08-07] MEDS ORDERED: AMLO10TA80 PO (10:23)
[2020-08-07] MEDS ORDERED: CLON0.2T PO (10:23)
[2020-08-07] MEDS ORDERED: FURO-151 MT (10:24)
[2020-08-07] MEDS ORDERED: POTA20LI52 MT (10:27)
[2020-08-07 12:00] VITALS: BP 137/52
[2020-08-07 16:00] VITALS: BP 154/51
[2020-08-07 16:34] VITALS: BP 154/51
[2020-08-07] MEDS ORDERED: FAMOTIDINE 20MG TABLET PO SCH (21:00)
[2020-08-07] MEDS ORDERED: ENOXAPARIN 40MG/0.4ML SYR SUBCUT SCH (21:00)
== END 2020-08-07 17:25 | disposition home health service (06) | DRG 720 ==
LOC: ER 18:19 → 6WST 07-30 00:38 → ENRESERV 07-30 02:26 → 6WST 07-30 05:33
PROVIDERS: ADMIT Specialist; ATTEND Specialist
PROC: 0HB6XZZ Excision of Back Skin, External Approach (ICD-10-PCS; principal; 2020-08-05)
DX: A41.9 Sepsis, unspecified organism (principal); L03.114 Cellulitis of left upper limb; I11.0 Hypertensive heart disease with heart failure; I50.9 Heart failure, unspecified; E66.01 Morbid (severe) obesity due to excess calories; M24.411 Recurrent dislocation, right shoulder; M48.061 Spinal stenosis, lumbar region without neurogenic claudication; L89.159 Pressure ulcer of sacral region, unspecified stage; N39.0 Urinary tract infection, site not specified; G89.29 Other chronic pain; M48.02 Spinal stenosis, cervical region; L30.9 Dermatitis, unspecified; D64.9 Anemia, unspecified; E88.09 Other disorders of plasma-protein metabolism, not elsewhere classified; D69.6 Thrombocytopenia, unspecified; M24.412 Recurrent dislocation, left shoulder; E87.5 Hyperkalemia; M75.02 Adhesive capsulitis of left shoulder; Z86.73 Personal history of transient ischemic attack (TIA), and cerebral infarction without residual deficits; Z74.01 Bed confinement status; Z68.41 Body mass index [BMI] 40.0-44.9, adult; Z93.3 Colostomy status; Z95.0 Presence of cardiac pacemaker; Z79.899 Other long term (current) drug therapy; S81.802A Unspecified open wound, left lower leg, initial encounter; S31.109A Unspecified open wound of abdominal wall, unspecified quadrant without penetration into peritoneal cavity, initial encounter; S31.000A Unspecified open wound of lower back and pelvis without penetration into retroperitoneum, initial encounter
CPT/HCPCS: 36415; 36600; 71045; 80048; 80053; 80202; 82270; 82375; 82607; 82728; 82746; 82805; 83036; 83540; 83550; 83605; 83735; 83880; 84145; 84484; 85025; 85044; 86140; 93005; 93970; 97162; 99285; A6261; C9113; J1650; J1940; J2543; J3370; J7030; J7040; J7060; A4315

== ENCOUNTER 2021-11-08 15:54 | Inpatient (IN) | payer MEDICARE, BC, MEDICAID ==
[~2021-11-08] VITALS: Ht 180.3 cm; Wt 90.7 kg
[2021-11-08] VITALS (28 sets, daily range): BP systolic 48–131; BP diastolic 23–73
[~2021-11-08 15:54] MED LIST: AMLO10TA80 PO; CLON0.2T PO; FURO-151 MT; POTA20LI52 MT
[2021-11-08] MEDS ORDERED: NOREPINEPHRINE 8MG/250ML PMX 250 ML IV ONE ×2 (16:00→16:15)
[2021-11-08] MEDS ORDERED: SODIUM CHLORIDE 0.9% 1000ML BAG (SEPSIS BOLUS) IV ONE (16:30)
[2021-11-08] MEDS ORDERED: PIPERACILLIN/TAZ 3.375G PREMIX 50 ML IV ONE (16:30)
[2021-11-08] MEDS ORDERED: VANCOMYCIN 1G PREMIX 200 ML IV ONE (16:30)
[2021-11-08] MEDS ORDERED: PROPOFOL 10MG/ML 100ML 100 ML IV STA (16:32)
[2021-11-08 16:52] LABS: HEMATOCRIT. 25.1 % (42.0-52.0); HEMOGLOBIN. 7.9 g/dL (14.0-18.0); MEAN CORPUSCULAR HEMOGLOBIN 28.1 pg (28.0-32.0); MEAN CORPUSCULAR VOLUME 89.3 fL (80.0-94.0); MEAN PLATELET VOLUME 7.5 fl (7.4-10.4); PLATELET 199 x1000/uL (130-400); RED BLOOD CELL COUNT 2.81 mill/uL (4.7-6.1); RED CELL DISTRIBUTION WIDTH 18.2 % (11.6-14.6)
[2021-11-08 16:57] LABS: CHLORIDE 111 mEq/L (98-107)
[2021-11-08 17:07] LABS: ETHANOL BLOOD < 10 mg/dL
[2021-11-08 17:07] LABS: CLARITY URINE TURBID (CLEAR); COLOR URINE RED (YELLOW); KETONES URINE NEGATIVE (NEGATIVE); LEUKOCYTE ESTERASE URINE 3+ (NEGATIVE); NITRITE URINE NEGATIVE (NEGATIVE); OCCULT BLOOD URINE 2+ (NEGATIVE); PH URINE >=9.0 (4.5-8.0); PROTEIN URINE 2+ (NEGATIVE); SPECIFIC GRAVITY URINE 1.013 (1.005-1.030); UROBILINOGEN URINE 0.2 E.U./dL (0.2-1.0)
[2021-11-08 17:08] LABS: INR 2.2; PROTHROMBIN TIME 22.4 sec (9.6-11.0)
[2021-11-08 17:27] LABS: *AMPHETAMINES SCREEN URINE NEGATIVE (NEGATIVE); *BARBITURATES SCREEN URINE NEGATIVE (NEGATIVE); *BENZODIAZEPINES SCREEN URINE NEGATIVE (NEGATIVE); *COCAINE SCREEN URINE NEGATIVE (NEGATIVE); CANNABINOID URINE SCREEN NEGATIVE (NEGATIVE); METHADONE URINE SCREEN NEGATIVE (NEGATIVE); OPIATES URINE SCREEN NEGATIVE (NEGATIVE); PHENCYCLIDINE URINE SCREEN NEGATIVE (NEGATIVE)
[2021-11-08 17:29] LABS: BG BASE EXCESS -7.4 mmol/L (-2.0-2.0); BG CARBOXYHEMOGLOBIN 0.3 % (0.5-1.5); BG DEOXYHEMOGLOBIN 0.5 % (0.0-5.0); BG FRACTION INSPIRED OXYGEN 100; BG HCO3 ACT 18.1 mmol/L (22.0-26.0); BG METHEMOGLOBIN 0.6 % (0.0-1.5); BG OXYGEN SATURATION 99.5 % (92.0-98.5); BG OXYHEMOGLOBIN 98.6 % (94.0-97.0); BG PCO2 36.2 mmHg (35.0-45.0); BG PH 7.316 (7.350-7.450); BG PO2 462.7 mmHg (75.0-100.0); BG SAMPLE SITE RIGHT RADIAL; BG TOTAL HEMOGLOBIN 8.1 g/dL (12.0-18.0); BG VENT MODE VENT - AC
[2021-11-08] MEDS ORDERED: KCL 20MEQ/100ML PREMIX 100 ML IV ONE (18:00)
[2021-11-08 18:40] LABS: PARTIAL THROMBOPLASTIN TIME 77.2 sec (23.4-31.0)
[2021-11-08] MEDS ORDERED: NOREPINEPHRINE 8 MG in DEXT 5% WATER 242 ML IV PRN (19:00)
[2021-11-08] MEDS ORDERED: ACETAMINOPHEN 650MG SUPP PR PRN ×2 (19:00)
[2021-11-08] MEDS ORDERED: ONDANSETRON HCL 4MG/2ML INJ IV PRN (19:00)
[2021-11-08] MEDS ORDERED: PHYTONADIONE 10MG/ML AMP SUBCUT NR (20:30)
[2021-11-08] MEDS ORDERED: PHENYLEPHRINE 50 MG in DEXT 5% WATER 245 ML IV PRN (20:30)
[2021-11-08] MEDS: NOREPINEPHRINE 8 MG in DEXT 5% WATER 242 ML IV PRN ×3 (20:36→23:43)
[2021-11-08] MEDS ORDERED: MEROPENEM 1,000 MG in SODIUM CHLORIDE 0.9% 100 ML IV SCH (21:00)
[2021-11-08 21:06] LABS: PLATELET ESTIMATE NORMAL
[2021-11-08] MEDS: PHENYLEPHRINE 50 MG in DEXT 5% WATER 245 ML IV PRN (22:09)
[2021-11-08] MEDS: DEXT 5%/0.45% NACL KCL 40MEQ/L 1,000 ML IV SCH (22:38)
[2021-11-09] VITALS (62 sets, daily range): BP systolic 35–103; BP diastolic 17–61
[2021-11-09 00:47] LABS: BG BASE EXCESS -14.1 mmol/L (-2.0-2.0); BG CARBOXYHEMOGLOBIN 0.3 % (0.5-1.5); BG FRACTION INSPIRED OXYGEN 40; BG METHEMOGLOBIN 0.5 % (0.0-1.5); BG OXYGEN SATURATION 84.9 % (92.0-98.5); BG OXYHEMOGLOBIN 84.2 % (94.0-97.0); BG PCO2 28.8 mmHg (35.0-45.0); BG PH 7.239 (7.350-7.450); BG PO2 54.9 mmHg (75.0-100.0); BG SAMPLE SITE LEFT RADIAL; BG TOTAL HEMOGLOBIN 7.5 g/dL (12.0-18.0); BG VENT MODE VBG - N/A
[2021-11-09] MEDS: PHENYLEPHRINE 50 MG in DEXT 5% WATER 245 ML IV PRN ×2 (01:00→04:27)
[2021-11-09] MEDS ORDERED: SODIUM BICARBONATE 8.4% 1 MEQ/ML 50ML SYR IV NR ×2 (01:00→08:30)
[2021-11-09] MEDS: VASOPRESSIN 20 UNIT in SODIUM CHLORIDE 0.9% 99 ML IV PRN ×4 (01:00→07:55)
[2021-11-09] MEDS: NOREPINEPHRINE 8 MG in DEXT 5% WATER 242 ML IV PRN ×2 (01:30→03:03)
[2021-11-09] MEDS ORDERED: KCL 20MEQ/100ML PREMIX 100 ML IV NR (02:00)
[2021-11-09] MEDS: DEXT 5%/0.45% NACL KCL 40MEQ/L 1,000 ML IV SCH ×2 (04:08→08:23)
[2021-11-09] MEDS: NOREPINEPHRINE 32 MG in DEXT 5% WATER 218 ML IV PRN ×2 (04:50→10:12)
[2021-11-09 07:18] LABS: PHOSPHORUS 3.1 mg/dL (2.5-4.9)
[2021-11-09 08:11] LABS: BG BASE EXCESS -27.2 mmol/L (-2.0-2.0); BG CARBOXYHEMOGLOBIN 0.7 % (0.5-1.5); BG DEOXYHEMOGLOBIN 4.5 % (0.0-5.0); BG FRACTION INSPIRED OXYGEN 60; BG HCO3 ACT 4.3 mmol/L (22.0-26.0); BG OXYGEN SATURATION 95.4 % (92.0-98.5); BG OXYHEMOGLOBIN 93.8 % (94.0-97.0); BG PCO2 25.8 mmHg (35.0-45.0); BG PH 6.836 (7.350-7.450); BG PO2 118.3 mmHg (75.0-100.0); BG SAMPLE SITE RIGHT RADIAL; BG TOTAL HEMOGLOBIN 5.8 g/dL (12.0-18.0); BG VENT MODE VENT - AC
[2021-11-09] MEDS ORDERED: DEXTROSE 50% WATER 50ML SYRINGE IV ONE (08:15)
[2021-11-09] MEDS ORDERED: EPINEPHRINE 0.1MG/ML (1:10,000) 10ML SYR ONE (08:15)
[2021-11-09] MEDS ORDERED: CALCIUM CHLORIDE 1GM/10ML SYR IV ONE (08:15)
[2021-11-09] MEDS ORDERED: SODIUM BICARBONATE 8.4% 1 MEQ/ML 50ML SYR IV ONE (08:15)
[2021-11-09] MEDS ORDERED: SODIUM BICARBONATE 150 MEQ in DEXTROSE 5% WATER 1,000 ML IV SCH (08:30)
[2021-11-09] MEDS ORDERED: PANTOPRAZOLE SODIUM 40 MG/VIAL IV SCH (09:00)
[2021-11-09 09:21] LABS: BASOPHILS % 0.3 % (0.0-2.0); EOSINOPHILS % 0.1 % (0.0-5.0); LYMPHOCYTES % 10.9 % (20.0-50.0); MEAN CORPUSCULAR HEMOGLOBIN 27.4 pg (28.0-32.0); MEAN CORPUSCULAR VOLUME 85.6 fL (80.0-94.0); MEAN PLATELET VOLUME 8.6 fl (7.4-10.4); MONOCYTES % 2.2 % (2.0-8.0); NEUTROPHILS % 86.5 % (40.0-76.0); PLATELET 139 x1000/uL (130-400); RED BLOOD CELL COUNT 1.49 mill/uL (4.7-6.1)
[2021-11-09 09:26] LABS: HEMATOCRIT. 12.7 % (42.0-52.0); HEMOGLOBIN. 4.1 g/dL (14.0-18.0)
[2021-11-09] MEDS ORDERED: EPINEPHRINE 10 MG in SODIUM CHLORIDE 0.9% 240 ML IV PRN (10:00)
[2021-11-09 10:20] LABS: PROTHROMBIN TIME 92.9 sec (9.6-11.0)
[2021-11-09 10:25] LABS: BG HCO3 ACT 10.1 mmol/L (22.0-26.0); BG PCO2 37.7 mmHg (35.0-45.0); BG PH 7.045 (7.350-7.450); BG PO2 139.4 mmHg (75.0-100.0); BG SAMPLE SITE RIGHT RADIAL; BG TOTAL HEMOGLOBIN < 4.5 g/dL (12.0-18.0); BG VENT MODE VENT - AC
[2021-11-09 10:25] LABS: INR > 10.0
== END 2021-11-09 15:36 | DRG 720 ==
LOC: ER 15:54 → CVICU 17:57 → EDBEDREQ 18:06 → ENRESERV 18:48
PROVIDERS: ADMIT Internal Medicine; ATTEND Internal Medicine
PROC: 5A1935Z Respiratory Ventilation, Less than 24 Consecutive Hours (ICD-10-PCS; principal; 2021-11-08)
PROC: 05HY33Z Insertion of Infusion Device into Upper Vein, Percutaneous Approach (ICD-10-PCS; 2021-11-08)
PROC: B54MZZA Ultrasonography of Right Upper Extremity Veins, Guidance (ICD-10-PCS; 2021-11-08)
PROC: 0BH18EZ Insertion of Endotracheal Airway into Trachea, Via Natural or Artificial Opening Endoscopic (ICD-10-PCS; 2021-11-08)
PROC: 5A12012 Performance of Cardiac Output, Single, Manual (ICD-10-PCS; 2021-11-09)
DX: A41.9 Sepsis, unspecified organism (principal); I46.9 Cardiac arrest, cause unspecified; D65 Disseminated intravascular coagulation [defibrination syndrome]; J96.00 Acute respiratory failure, unspecified whether with hypoxia or hypercapnia; R65.21 Severe sepsis with septic shock; E43 Unspecified severe protein-calorie malnutrition; R31.0 Gross hematuria; M48.061 Spinal stenosis, lumbar region without neurogenic claudication; I11.0 Hypertensive heart disease with heart failure; I50.42 Chronic combined systolic (congestive) and diastolic (congestive) heart failure; D64.9 Anemia, unspecified; E87.2 Acidosis; E87.6 Hypokalemia; M48.02 Spinal stenosis, cervical region; N39.0 Urinary tract infection, site not specified; F17.210 Nicotine dependence, cigarettes, uncomplicated; N17.9 Acute kidney failure, unspecified; N36.8 Other specified disorders of urethra; Z86.73 Personal history of transient ischemic attack (TIA), and cerebral infarction without residual deficits; Z79.84 Long term (current) use of oral hypoglycemic drugs; Z79.899 Other long term (current) drug therapy; Z95.0 Presence of cardiac pacemaker; Z93.3 Colostomy status; Z74.01 Bed confinement status; Z68.27 Body mass index [BMI] 27.0-27.9, adult
CPT/HCPCS: 31500; 36415; 36600; 71045; 74176; 80048; 80053; 80305; 80320; 81003; 82375; 82805; 82962; 83605; 83735; 83880; 84100; 84145; 84484; 85025; 86850; 86900; 86920; 87070; 87077; 87186; 93005; 94002; 99291; C9113; J2185; J2370; J2543; J2704; J3370; J3430; J3480; J3490; J7030; J7050; J7060; J7070; A4315; G0480